=== PATIENT | female | born 1955 | race Caucasian/White ===

== ENCOUNTER 2020-11-18 18:14 | Emergency (ER) | payer MEDICARE, BC ==
[~2020-11-18] VITALS: Ht 157.5 cm; Wt 56.2 kg
[2020-11-18] MEDS ORDERED: LOSA100T31 PO (18:30)
[2020-11-18] MEDS ORDERED: LEVO88TA5 PO (18:30)
[2020-11-18] MEDS ORDERED: AMLO-212 PO (18:30)
[2020-11-18] MEDS ORDERED: ADAL40SY SQ (18:30)
--- NOTE | 2020-11-18 18:58 | NUR ---
Pt. came in today for dizziness she experienced when she stood up after doing exercises on the floor. Pt. has hypertension, and recently stopped taking her furosemide under the care of her doctor. Pt stated at home her hr was in the 90's and her systolic bp was around 150-160. pt is a&ox4. is at the bedside. Pt also reports that in her 20's she experienced a blood clot, she believes related to her at the time, smoking hx, and appendix surgery. Pt. is not on any blood thinners. Pt also reports she has psoriatic arthritis. Denies any chest pain, changes in vision, cough, fever, or headache. Dr. Wilder is at bedside to do mse.
--- NOTE | 2020-11-18 19:34 | NUR ---
Pt taken to CT.
--- NOTE | 2020-11-18 19:47 | NUR ---
Pt returned from CT
[2020-11-18 19:55] LABS: HEMATOCRIT 42.3 % (31.2-41.9); MEAN CORPUSCULAR HEMOGLOBIN 31.6 uug (24.7-32.8); MEAN CORPUSCULAR VOLUME 95.3 fL (75.5-95.3); PLATELET COUNT (AUTO) 195 K/uL (179-408)
[2020-11-18] MEDS ORDERED: ASPIRIN 81 MG TAB.CHEW PO ONE (20:00)
[2020-11-18 20:02] LABS: CREATININE 0.9 mg/dL (0.6-1.3); POTASSIUM 3.4 mmol/L (3.5-5.1)
[2020-11-18 20:08] LABS: BILIRUBIN,DIRECT 0.1 mg/dL (0.0-0.2); BILIRUBIN,TOTAL 0.4 mg/dL (0.2-1.0); TOTAL PROTEIN, SERUM 7.7 g/dL (6.4-8.2)
[2020-11-18] MEDS ORDERED: ASPIRIN 81 MG TAB.CHEW ONE (20:17)
--- NOTE | 2020-11-18 20:20 | NUR ---
Patient discharged to home in stable condition. Pt walks with steady gait, denies dizziness, changes in vision. No signs of distress, vss. IV removed. All belongings taken with pt. Written and verbal after care instructions given. Patient verbalizes understanding of instructions. Stressed follow up or return to ER for worsening s/s
[2020-11-18 21:06] VITALS: BP 141/79
== END 2020-11-18 20:07 | disposition home or self-care (01) ==
LOC: ER 18:17
DX: G45.0 Vertebro-basilar artery syndrome (principal); L40.50 Arthropathic psoriasis, unspecified; Z79.899 Other long term (current) drug therapy; Z87.891 Personal history of nicotine dependence; Z86.711 Personal history of pulmonary embolism; Z79.890 Hormone replacement therapy
CPT/HCPCS: 36415; 70030-TC; 70450; 71045; 85025; 85730; 93005; A4663